=== PATIENT | male | born 1945 ===

== ENCOUNTER → 2021-04-19 15:13 | Outpatient (BNVA) | payer OTHER, SELFPAY | PROVIDERS: PCP Internal Medicine; Visit Provider Psychiatry & Neurology Neurology ==

== ENCOUNTER 2022-03-09 12:50 | Outpatient (REF) | payer MEDICARE, SELFPAY | END 2022-03-09 12:51 | disposition home or self-care (01) | LOC: HO.SH 12:50 | PROVIDERS: Visit Provider Internal Medicine | DX: Z01.118 Encounter for examination of ears and hearing with other abnormal findings (principal); H90.3 Sensorineural hearing loss, bilateral | CPT/HCPCS: 92557; 92567 ==